=== PATIENT | female | born 1950 | race Caucasian/White ===

== ENCOUNTER 2021-07-09 16:58 | Inpatient (IN) | payer MEDICARE, MEDICAID ==
[~2021-07-09] VITALS: Ht 167.6 cm; Wt 89.4 kg
[~2021-07-09 16:58] MED LIST: ETOMIDATE 20 MG/10 ML ONE; MIDAZOLAM 1 MG/ML, 5ML ONE; PROPOFOL 10 MG/ML, 100ML IV ONE; VECURONIUM 10 MG ONE
[2021-07-09] MEDS: NOREPINEPHRINE 8 MG in SODIUM CHLORIDE 0.9% 242 ML IV PRN ×2 (17:13→20:38)
--- NOTE | 2021-07-09 17:21 | NUR ---
1706 ETOMIDATE THEN VECURONIUM ADMIN. SOFT RESTRAINTS PLACED 1709 7.5 TUBE 23 TEETH 1713 LEVO AND PROPOFOL INITIATED 1720 SET UP FOR CENTRAL LINE.
--- NOTE | 2021-07-09 17:25 | NUR ---
VENT SETTINGS RATE 24, TV 500, FIO2 100%, PEEP 10
[2021-07-09] MEDS ORDERED: VECURONIUM 10 MG IVPush ONE (17:30)
[2021-07-09] MEDS ORDERED: PLEASE ENTER HEIGHT AND WEIGHT MC SCH (17:30)
[2021-07-09] MEDS ORDERED: ETOMIDATE 40 MG/20 ML IVPush ONE (17:30)
[2021-07-09] MEDS ORDERED: PLEASE ENTER ALLERGIES MC SCH (17:30)
[2021-07-09] MEDS ORDERED: ACETAMINOPHEN 325 MG SUPP ONE (17:59)
[2021-07-09] MEDS ORDERED: ACETAMINOPHEN 650 MG SUPP ONE (17:59)
[2021-07-09 18:27] LABS: ALBUMIN 1.8 g/dL (3.4-5.0); ANION GAP 7 mmol/L (5-15); CALCIUM 8.2 mg/dL (8.5-10.1); CHLORIDE 110 mmol/L (98-107)
[2021-07-09] MEDS ORDERED: MIDAZOLAM 1 MG/ML, 5ML IVPush ONE (18:30)
[2021-07-09 18:31] LABS: CREATININE 0.94 mg/dL (0.55-1.02); MEAN CORPUSCULAR HEMOGLOBIN 29.6 pg (27.0-34.8); MEAN CORPUSCULAR HGB CONC 31.8 g/dL (32.4-35.8); MEAN PLATELET VOLUME 7.7 fL (7.4-10.4); PLATELET COUNT 176 x10^3/uL (130-400); RED BLOOD COUNT 5.65 x10^6/uL (3.82-5.3)
[2021-07-09 18:34] LABS: TROPONIN I 0.268 ng/mL (0.000-0.045)
--- NOTE | 2021-07-09 18:40 | NUR ---
Break RN: spoke with patient's who states patient started becoming edematous around Jun 23- and has doubled in size since then.
--- NOTE | 2021-07-09 18:44 | NUR ---
Break RN: patient moving frequently; admin meds per mar. BS 71. Initiated D10 infusion per hospitalist, Dr. Ralph at 50mL/hr with a goal of BS 160-180. Primary RN aware.
[2021-07-09] MEDS ORDERED: FENTANYL PF 100 MCG/2ML ONE (18:46)
--- NOTE | 2021-07-09 18:57 | NUR ---
physical assessment performed upon arrival. documented at later time.
[2021-07-09] MEDS ORDERED: FUROSEMIDE 100 MG/10 ML IV ONE (19:00)
[2021-07-09] MEDS ORDERED: ACETAMINOPHEN 650 MG SUPP PR ONE (19:00)
[2021-07-09] MEDS ORDERED: NOREPINEPHRINE 8 MG in SODIUM CHLORIDE 0.9% 242 ML IV PRN (19:00)
[2021-07-09] MEDS ORDERED: VANCOMYCIN PER PHARMACY MC PRN (19:00)
[2021-07-09] MEDS ORDERED: LABETALOL 5MG/ML, 20ML IVPush PRN (19:00)
[2021-07-09] MEDS ORDERED: ONDANSETRON 2MG/ML, 2ML IVPush PRN (19:00)
[2021-07-09] MEDS ORDERED: PHARMACY MAY ADJ FOR RENAL FX MC PRN (19:00)
[2021-07-09] MEDS ORDERED: SODIUM CHLORIDE FLUSH 10ML SYR IVF PRN (19:00)
[2021-07-09] MEDS ORDERED: BISACODYL 10 MG SUPP PR PRN (19:00)
[2021-07-09] MEDS ORDERED: ICN FENTANYL 4MCG/ML IV IVPush ONE (19:00)
--- NOTE | 2021-07-09 19:10 | NUR ---
[place] bag emptied with 2500 ml of urine
[2021-07-09] MEDS ORDERED: FUROSEMIDE 40 MG/4 ML ONE (19:15)
[2021-07-09 19:17] LABS: BAND#(MANUAL) 2.02 x10^3/uL; BANDS%(MANUAL) 17 % (0-7); LYMPH#(MANUAL) 0.83 x10^3/uL (1-3.4); LYMPHS% (MANUAL) 7 % (22-44); MONOS#(MANUAL) 0.71 x10^3/uL (0.3-2.7); MONOS% (MANUAL) 6 % (2-9); SEG#(MANUAL) 8.33 x10^3/uL (1.8-6.8); SEGS% (MANUAL) 70 % (42-75)
[2021-07-09 19:18] LABS: ANISOCYTOSIS 1+
[2021-07-09 19:19] LABS: <PLATELET ESTIMATE> ADEQUATE; <PLT MORPHOLOGY> NORMAL PLT MORPH
[2021-07-09] MEDS ORDERED: PIPERACILLIN/TAZO 4.5 GM in DEXTROSE 5% 50 ML IVPB SCH (19:30)
[2021-07-09] MEDS ORDERED: PHARMACY MAY ADJ FOR RENAL FX MC SCH (19:30)
[2021-07-09] MEDS: PIPERACILLIN/TAZO 4.5 GM in DEXTROSE 5% 100 ML IVPB SCH (19:33)
[2021-07-09] MEDS ORDERED: ALBUTEROL/IPRATROPIUM 2.5MG/0.5MG, 3 ML ONE (19:40)
--- NOTE | 2021-07-09 19:42 | NUR ---
ice packs placed in groin. md aware of temp post medications.
[2021-07-09] MEDS ORDERED: FUROSEMIDE 40 MG/4 ML IV ONE (20:00)
[2021-07-09] MEDS ORDERED: FENTANYL PF 100 MCG/2ML IVPush ONE (20:00)
[2021-07-09] MEDS ORDERED: DEXTROSE 10%, 250ML IV ONE (20:30)
[2021-07-09] MEDS ORDERED: PHARMACOKINETIC MONITORING MC PRN (20:30)
[2021-07-09] MEDS: VANCOMYCIN 1,900 MG in SODIUM CHLORIDE 0.9% 250 ML IV SCH (20:36)
[2021-07-09] MEDS: FAMOTIDINE 20 MG/2 ML IVPush SCH (20:42)
[2021-07-09] MEDS: ENOXAPARIN 40 MG/0.4 ML SQ SCH (20:42)
[2021-07-09 21:30] VITALS: BP 102/65
[2021-07-09] MEDS ORDERED: DEXTROSE 10%, 1,000ML IV SCH (23:00)
[2021-07-09] MEDS ORDERED: ALBUTEROL/IPRATROPIUM 2.5MG/0.5MG, 3 ML NPPB SCH (23:00)
[2021-07-09 23:39] LABS: MICROSCOPIC NOT IND
[2021-07-10] MEDS: NOREPINEPHRINE 32 MG in SODIUM CHLORIDE 0.9% 218 ML IV PRN ×3 (00:05→16:40)
[2021-07-10 00:26] LABS: TROPONIN I 0.267 ng/mL (0.000-0.045)
[2021-07-10] MEDS ORDERED: PHENYLEPHRINE 100 MG in SODIUM CHLORIDE 0.9% 240 ML IV PRN (00:30)
[2021-07-10] MEDS: ACETAMINOPHEN 500 MG TABLET NG PRN ×2 (00:50→09:42)
[2021-07-10] MEDS: PIPERACILLIN/TAZO 4.5 GM in DEXTROSE 5% 100 ML IVPB SCH ×4 (02:55→21:30)
[2021-07-10] MEDS: ALBUTEROL/IPRATROPIUM 2.5MG/0.5MG, 3 ML NPPB SCH ×4 (03:00→21:00)
[2021-07-10] MEDS: PROPOFOL 100 ML IV PRN ×3 (04:20→21:31)
[2021-07-10 04:50] LABS: MEAN CORPUSCULAR HEMOGLOBIN 29.6 pg (27.0-34.8); MEAN CORPUSCULAR HGB CONC 32.2 g/dL (32.4-35.8); MEAN PLATELET VOLUME 7.9 fL (7.4-10.4); PLATELET COUNT 194 x10^3/uL (130-400); RED BLOOD COUNT 5.77 x10^6/uL (3.82-5.3); RED CELL DISTRIBUTION WIDTH 18.5 % (9.6-15.2)
[2021-07-10 04:53] LABS: ALANINE AMINOTRANSFERASE 22 U/L (12-78); ALBUMIN 1.4 g/dL (3.4-5.0); ANION GAP 6 mmol/L (5-15); CALCIUM 7.5 mg/dL (8.5-10.1); CHLORIDE 108 mmol/L (98-107); CREATININE 1.43 mg/dL (0.55-1.02)
[2021-07-10 04:58] LABS: ALKALINE PHOSPHATASE 103 U/L (45-117); BILIRUBIN,TOTAL 0.8 mg/dL (0.2-1.0); TOTAL PROTEIN 4.9 g/dL (6.4-8.2)
[2021-07-10 05:53] LABS: BAND#(MANUAL) 4.05 x10^3/uL; BANDS%(MANUAL) 21 % (0-7); LYMPH#(MANUAL) 1.35 x10^3/uL (1-3.4); LYMPHS% (MANUAL) 7 % (22-44); MONOS#(MANUAL) 1.35 x10^3/uL (0.3-2.7); MONOS% (MANUAL) 7 % (2-9); SEG#(MANUAL) 12.55 x10^3/uL (1.8-6.8); SEGS% (MANUAL) 65 % (42-75)
[2021-07-10 05:54] LABS: <PLATELET ESTIMATE> ADEQUATE; <PLT MORPHOLOGY> NORMAL PLT MORPH; ANISOCYTOSIS 1+
[2021-07-10] MEDS: FAMOTIDINE 20 MG/2 ML IVPush SCH (08:17)
[2021-07-10] MEDS: POTASSIUM CHLORIDE 20 MEQ TAB.ER.PRT PO SCH ×2 (08:17→17:49)
[2021-07-10] MEDS ORDERED: MAGNESIUM SULFATE PMX 4GM/100M 100 ML IVPB ONE (09:00)
[2021-07-10] MEDS ORDERED: DEXTROSE 50%, 50ML SYRINGE IVPush PRN (09:00)
[2021-07-10] MEDS: FUROSEMIDE 100 MG in SODIUM CHLORIDE 0.9% 90 ML IV PRN ×2 (09:21→14:20)
[2021-07-10] MEDS ORDERED: FENTANYL PF 100 MCG/2ML ONE (11:03)
[2021-07-10] MEDS: FENTANYL PF 100 MCG/2ML IVPush PRN ×2 (11:05→20:13)
[2021-07-10] MEDS ORDERED: METHIMAZOLE 5 MG TAB ONE (13:27)
[2021-07-10] MEDS ORDERED: METOLAZONE 5 MG TABLET PO ONE (13:30)
[2021-07-10] MEDS: DEXTROSE 50%, 50ML SYRINGE IVPush PRN ×2 (13:38→17:49)
[2021-07-10] MEDS ORDERED: METOLAZONE 5 MG TABLET ONE (13:45)
[2021-07-10] MEDS: VANCOMYCIN 1,900 MG in SODIUM CHLORIDE 0.9% 250 ML IV SCH (14:59)
[2021-07-10] MEDS ORDERED: DEXTROSE 10%, 1,000ML IV ONE (19:37)
[2021-07-10] MEDS: VASOPRESSIN 20 UNIT in SODIUM CHLORIDE 0.9% 99 ML IV PRN (20:05)
[2021-07-10] MEDS: MILRINONE IV PRN (20:06)
[2021-07-10] MEDS: DEXTROSE 5% IV PRN (20:06)
[2021-07-10] MEDS: ENOXAPARIN 40 MG/0.4 ML SQ SCH (21:31)
[2021-07-11] MEDS: ALBUTEROL/IPRATROPIUM 2.5MG/0.5MG, 3 ML NPPB SCH ×4 (01:14→21:00)
[2021-07-11] MEDS: PIPERACILLIN/TAZO 4.5 GM in DEXTROSE 5% 100 ML IVPB SCH ×2 (01:49→08:23)
[2021-07-11] MEDS: VASOPRESSIN 20 UNIT in SODIUM CHLORIDE 0.9% 99 ML IV PRN ×3 (01:49→20:15)
[2021-07-11] MEDS: ACETAMINOPHEN 500 MG TABLET NG PRN ×2 (02:33→12:26)
[2021-07-11] MEDS: PROPOFOL 100 ML IV PRN ×2 (04:36→10:28)
[2021-07-11 05:13] LABS: MEAN CORPUSCULAR HEMOGLOBIN 29.3 pg (27.0-34.8); MEAN CORPUSCULAR HGB CONC 31.6 g/dL (32.4-35.8); MEAN PLATELET VOLUME 7.9 fL (7.4-10.4); PLATELET COUNT 145 x10^3/uL (130-400); RED BLOOD COUNT 5.77 x10^6/uL (3.82-5.3); RED CELL DISTRIBUTION WIDTH 19.1 % (9.6-15.2)
[2021-07-11 06:17] LABS: ANISOCYTOSIS 1+; BANDS%(MANUAL) 15 % (0-7); EOS#(MANUAL) 0.24 x10^3/uL (0.0-0.4); EOS% (MANUAL) 1 % (1-7); LYMPH#(MANUAL) 0.72 x10^3/uL (1-3.4); LYMPHS% (MANUAL) 3 % (22-44); MONOS% (MANUAL) 10 % (2-9); SEG#(MANUAL) 17.04 x10^3/uL (1.8-6.8); SEGS% (MANUAL) 71 % (42-75)
[2021-07-11 06:18] LABS: <PLATELET ESTIMATE> ADEQUATE; <PLT MORPHOLOGY> NORMAL PLT MORPH; PMNS WITH VACUOLES 1+
[2021-07-11 06:25] LABS: ALANINE AMINOTRANSFERASE 21 U/L (12-78); ALBUMIN 1.2 g/dL (3.4-5.0); ANION GAP 12 mmol/L (5-15); CALCIUM 7.3 mg/dL (8.5-10.1); CHLORIDE 107 mmol/L (98-107)
[2021-07-11 06:27] LABS: ALKALINE PHOSPHATASE 115 U/L (45-117); TOTAL PROTEIN 4.6 g/dL (6.4-8.2)
[2021-07-11] MEDS: NOREPINEPHRINE 32 MG in SODIUM CHLORIDE 0.9% 218 ML IV PRN ×4 (06:40→21:06)
[2021-07-11] MEDS: DEXTROSE 5% IV PRN ×3 (08:23→20:05)
[2021-07-11] MEDS: MILRINONE IV PRN ×3 (08:23→20:05)
[2021-07-11] MEDS: VANCOMYCIN 1,900 MG in SODIUM CHLORIDE 0.9% 250 ML IV SCH (08:57)
[2021-07-11] MEDS: FAMOTIDINE 20 MG/2 ML IVPush SCH (10:28)
[2021-07-11] MEDS ORDERED: ADENOSINE 6 MG/2 ML ONE (11:35)
[2021-07-11] MEDS ORDERED: ADENOSINE 6 MG/2 ML IVPush ONE (12:00)
[2021-07-11] MEDS: FENTANYL PF 100 MCG/2ML IVPush PRN (12:23)
[2021-07-11] MEDS: PIPERACILLIN/TAZO 2.25 GM in DEXTROSE 5% 50 ML IVPB SCH ×2 (13:36→20:33)
[2021-07-11] MEDS: ENOXAPARIN 30 MG/0.3 ML SQ SCH (20:00)
[2021-07-12] MEDS: PROPOFOL 100 ML IV PRN ×4 (00:12→20:39)
[2021-07-12] MEDS: DEXTROSE 5% IV PRN ×4 (00:51→22:25)
[2021-07-12] MEDS: MILRINONE IV PRN ×4 (00:51→22:25)
[2021-07-12] MEDS: PIPERACILLIN/TAZO 2.25 GM in DEXTROSE 5% 50 ML IVPB SCH ×4 (01:55→20:40)
[2021-07-12] MEDS: ACETAMINOPHEN 500 MG TABLET NG PRN (01:55)
[2021-07-12 02:41] LABS: MEAN CORPUSCULAR HEMOGLOBIN 28.9 pg (27.0-34.8); MEAN PLATELET VOLUME 7.8 fL (7.4-10.4); PLATELET COUNT 139 x10^3/uL (130-400); RED BLOOD COUNT 5.56 x10^6/uL (3.82-5.3); RED CELL DISTRIBUTION WIDTH 18.9 % (9.6-15.2)
[2021-07-12] MEDS: ALBUTEROL/IPRATROPIUM 2.5MG/0.5MG, 3 ML NPPB SCH ×4 (02:47→18:23)
[2021-07-12 03:50] LABS: BAND#(MANUAL) 4.09 x10^3/uL; BANDS%(MANUAL) 14 % (0-7); BASOS#(MANUAL) 0.29 x10^3/uL (0-0.1); BASOS% (MANUAL) 1 % (0-1); LYMPH#(MANUAL) 2.04 x10^3/uL (1-3.4); LYMPHS% (MANUAL) 7 % (22-44); MONOS#(MANUAL) 1.75 x10^3/uL (0.3-2.7); MONOS% (MANUAL) 6 % (2-9); SEG#(MANUAL) 21.02 x10^3/uL (1.8-6.8); SEGS% (MANUAL) 72 % (42-75)
[2021-07-12 03:51] LABS: ANISOCYTOSIS 1+; PMNS WITH VACUOLES 1+
[2021-07-12 03:52] LABS: <PLATELET ESTIMATE> ADEQUATE; <PLT MORPHOLOGY> NORMAL PLT MORPH
[2021-07-12] MEDS: VASOPRESSIN 20 UNIT in SODIUM CHLORIDE 0.9% 99 ML IV PRN ×4 (05:00→17:18)
[2021-07-12] MEDS: NOREPINEPHRINE 32 MG in SODIUM CHLORIDE 0.9% 218 ML IV PRN ×2 (05:01→17:18)
[2021-07-12] MEDS ORDERED: MAGNESIUM SULFATE PMX 2GM/50ML 50 ML IV ONE (07:00)
[2021-07-12 07:38] LABS: ALANINE AMINOTRANSFERASE 22 U/L (12-78); ANION GAP 10 mmol/L (5-15); CALCIUM 6.9 mg/dL (8.5-10.1); CHLORIDE 103 mmol/L (98-107); CREATININE 1.78 mg/dL (0.55-1.02)
[2021-07-12 07:40] LABS: ALKALINE PHOSPHATASE 155 U/L (45-117); BILIRUBIN,TOTAL 1.3 mg/dL (0.2-1.0); TOTAL PROTEIN 4.9 g/dL (6.4-8.2)
[2021-07-12] MEDS: FAMOTIDINE 20 MG/2 ML IVPush SCH (09:26)
[2021-07-12] MEDS: FENTANYL PF 100 MCG/2ML IVPush PRN ×2 (20:39→22:34)
[2021-07-12] MEDS: ENOXAPARIN 30 MG/0.3 ML SQ SCH (20:40)
[2021-07-13] MEDS: ALBUTEROL/IPRATROPIUM 2.5MG/0.5MG, 3 ML NPPB SCH ×4 (01:00→21:50)
[2021-07-13] MEDS ORDERED: VANCOMYCIN 1,500 MG in SODIUM CHLORIDE 0.9% 250 ML IV SCH (02:00)
[2021-07-13] MEDS: FENTANYL PF 100 MCG/2ML IVPush PRN ×3 (02:06→20:19)
[2021-07-13] MEDS: PIPERACILLIN/TAZO 2.25 GM in DEXTROSE 5% 50 ML IVPB SCH ×4 (02:06→20:48)
[2021-07-13] MEDS: PROPOFOL 100 ML IV PRN ×4 (02:07→22:36)
[2021-07-13] MEDS: MILRINONE IV PRN ×4 (03:05→18:24)
[2021-07-13] MEDS: DEXTROSE 5% IV PRN ×4 (03:05→18:24)
[2021-07-13 04:24] LABS: MEAN CORPUSCULAR HEMOGLOBIN 28.7 pg (27.0-34.8); MEAN CORPUSCULAR HGB CONC 32.5 g/dL (32.4-35.8); MEAN PLATELET VOLUME 8.1 fL (7.4-10.4); PLATELET COUNT 118 x10^3/uL (130-400); RED BLOOD COUNT 5.13 x10^6/uL (3.82-5.3); RED CELL DISTRIBUTION WIDTH 17.6 % (9.6-15.2)
[2021-07-13 05:03] LABS: ANISOCYTOSIS 1+; BAND#(MANUAL) 2.86 x10^3/uL; BANDS%(MANUAL) 11 % (0-7); LYMPH#(MANUAL) 2.08 x10^3/uL (1-3.4); LYMPHS% (MANUAL) 8 % (22-44); MONOS#(MANUAL) 1.82 x10^3/uL (0.3-2.7); MONOS% (MANUAL) 7 % (2-9); PMNS WITH VACUOLES 2+; SEG#(MANUAL) 19.24 x10^3/uL (1.8-6.8); SEGS% (MANUAL) 74 % (42-75); TARGET CELLS 1+
[2021-07-13 05:04] LABS: <PLATELET ESTIMATE> DECREASED; HYPOCHROMIA 1+
[2021-07-13 05:05] LABS: <PLT MORPHOLOGY> NORMAL PLT MORPH
[2021-07-13] MEDS ORDERED: MAGNESIUM SULFATE PMX 2GM/50ML 50 ML IV ONE (07:00)
[2021-07-13] MEDS: NOREPINEPHRINE 32 MG in SODIUM CHLORIDE 0.9% 218 ML IV PRN (07:32)
[2021-07-13 07:37] LABS: CALCIUM 7.3 mg/dL (8.5-10.1); CHLORIDE 99 mmol/L (98-107); CREATININE 1.25 mg/dL (0.55-1.02)
[2021-07-13] MEDS: FAMOTIDINE 20 MG/2 ML IVPush SCH (07:45)
[2021-07-13 07:52] LABS: ANION GAP 11 mmol/L (5-15)
[2021-07-13] MEDS ORDERED: TPN PER PHARMACY MC SCH (08:30)
[2021-07-13] MEDS: POTASSIUM CHLORIDE 20 MEQ PACKET PO SCH ×3 (08:50→20:19)
[2021-07-13] MEDS ORDERED: hydrALAzine 20 MG/ML, 1ML IV SCH (09:00)
[2021-07-13] MEDS ORDERED: FILTER, DISP 1.2 MICRON FOR TPN/PVN IV PRN (10:30)
[2021-07-13] MEDS: VASOPRESSIN 20 UNIT in SODIUM CHLORIDE 0.9% 99 ML IV PRN (13:17)
[2021-07-13 14:45] LABS: ANION GAP 6 mmol/L (5-15); CALCIUM 7.3 mg/dL (8.5-10.1); CHLORIDE 99 mmol/L (98-107); CREATININE 1.08 mg/dL (0.55-1.02)
[2021-07-13] MEDS ORDERED: POTASSIUM CHLORIDE 40 MEQ in SODIUM CHLORIDE 0.9% 100 ML IV ONE ×2 (15:30→21:00)
[2021-07-13] MEDS ORDERED: STERILE WATER IV SCH (17:00)
[2021-07-13] MEDS ORDERED: AMINO ACID 10% IV SCH (17:00)
[2021-07-13] MEDS ORDERED: DEXTROSE 70% IV SCH (17:00)
[2021-07-13] MEDS ORDERED: [UNRECOGNIZED DRUG - OTHER] IV SCH (17:00)
[2021-07-13] MEDS: KSCALE TO 4.5 IV SCH (20:00)
[2021-07-13] MEDS: ENOXAPARIN 40 MG/0.4 ML SQ SCH (20:19)
[2021-07-13] MEDS: INSULIN REGULAR LOW DOSE Q6H X 48HRS SQ-INSULIN SCH (20:20)
[2021-07-13] MEDS ORDERED: INSULIN REGULAR LOW DOSE QDAY SQ-INSULIN SCH (21:00)
[2021-07-14] MEDS: FENTANYL PF 100 MCG/2ML IVPush PRN ×3 (00:22→08:42)
[2021-07-14] MEDS: ALBUTEROL/IPRATROPIUM 2.5MG/0.5MG, 3 ML NPPB SCH ×4 (01:35→21:00)
[2021-07-14] MEDS: KSCALE TO 4.5 IV SCH (02:00)
[2021-07-14] MEDS: PIPERACILLIN/TAZO 2.25 GM in DEXTROSE 5% 50 ML IVPB SCH ×4 (02:00→20:36)
[2021-07-14] MEDS: INSULIN REGULAR LOW DOSE Q6H X 48HRS SQ-INSULIN SCH ×2 (02:01→08:53)
[2021-07-14] MEDS ORDERED: POTASSIUM CHLORIDE PMX 100 ML IV ONE (03:00)
[2021-07-14] MEDS: PROPOFOL 100 ML IV PRN ×4 (03:29→21:08)
[2021-07-14] MEDS: NOREPINEPHRINE 32 MG in SODIUM CHLORIDE 0.9% 218 ML IV PRN (04:47)
[2021-07-14 05:14] LABS: ALBUMIN 1.3 g/dL (3.4-5.0); ANION GAP 4 mmol/L (5-15); CALCIUM 7.6 mg/dL (8.5-10.1); CHLORIDE 106 mmol/L (98-107)
[2021-07-14 05:20] LABS: MEAN CORPUSCULAR HEMOGLOBIN 28.4 pg (27.0-34.8); MEAN CORPUSCULAR HGB CONC 32.1 g/dL (32.4-35.8); MEAN PLATELET VOLUME 8.2 fL (7.4-10.4); PLATELET COUNT 124 x10^3/uL (130-400); RED BLOOD COUNT 5.36 x10^6/uL (3.82-5.3); RED CELL DISTRIBUTION WIDTH 17.8 % (9.6-15.2)
[2021-07-14 05:21] LABS: ALANINE AMINOTRANSFERASE 26 U/L (12-78); ALKALINE PHOSPHATASE 267 U/L (45-117); BILIRUBIN,TOTAL 1.8 mg/dL (0.2-1.0); CREATININE 1.02 mg/dL (0.55-1.02); PREALBUMIN 4.2 mg/dL (20.0-40.0); TOTAL PROTEIN 5.1 g/dL (6.4-8.2); VANCOMYCIN,RANDOM 26.4 mcg/mL
[2021-07-14 06:09] LABS: ANISOCYTOSIS 1+; BAND#(MANUAL) 2.01 x10^3/uL; BANDS%(MANUAL) 10 % (0-7); EOS% (MANUAL) 1 % (1-7); HYPOCHROMIA 1+; LYMPH#(MANUAL) 2.21 x10^3/uL (1-3.4); LYMPHS% (MANUAL) 11 % (22-44); MONOS#(MANUAL) 1.21 x10^3/uL (0.3-2.7); MONOS% (MANUAL) 6 % (2-9); SEG#(MANUAL) 14.47 x10^3/uL (1.8-6.8); SEGS% (MANUAL) 72 % (42-75); TARGET CELLS 1+
[2021-07-14 06:10] LABS: <PLATELET ESTIMATE> DECREASED; <PLT MORPHOLOGY> NORMAL PLT MORPH
[2021-07-14] MEDS ORDERED: SODIUM PHOSPHATE 20 MMOL in SODIUM CHLORIDE 0.9% 500 ML IV ONE (06:30)
[2021-07-14] MEDS ORDERED: FUROSEMIDE 40 MG/4 ML ONE (10:01)
[2021-07-14] MEDS: FUROSEMIDE 20 MG/2 ML IV SCH ×2 (10:15→20:51)
[2021-07-14] MEDS: FENTANYL PF 1,000 MCG in SODIUM CHLORIDE 0.9% 80 ML IV PRN (10:16)
[2021-07-14] MEDS: INSULIN REGULAR, HUMAN 100 UNITS/ML, 3ML MEDIUM DOSE SS SQ-INSULIN SCH ×2 (11:00→16:53)
[2021-07-14] MEDS ORDERED: OMNIPAQUE 350 MG/ML, 150 ML BOTTLE ONE (14:07)
[2021-07-14] MEDS ORDERED: [UNRECOGNIZED DRUG - OTHER] IV SCH (17:00)
[2021-07-14] MEDS ORDERED: STERILE WATER IV SCH ×2 (17:00)
[2021-07-14] MEDS ORDERED: [UNRECOGNIZED DRUG - OTHER] IV SCH (17:00)
[2021-07-14] MEDS ORDERED: AMINO ACID 10% IV SCH ×2 (17:00)
[2021-07-14] MEDS ORDERED: DEXTROSE 70% IV SCH ×2 (17:00)
[2021-07-14] MEDS: INSULIN REGULAR 100 UNITS/ML, 3ML VIAL SQ-INSULIN SCH (20:51)
[2021-07-14] MEDS: ENOXAPARIN 40 MG/0.4 ML SQ SCH (20:51)
[2021-07-14] MEDS: VANCOMYCIN 1,300 MG in SODIUM CHLORIDE 0.9% 250 ML IV SCH (21:08)
[2021-07-15] MEDS: ALBUTEROL/IPRATROPIUM 2.5MG/0.5MG, 3 ML NPPB SCH ×4 (01:20→21:00)
[2021-07-15] MEDS: FENTANYL PF 1,000 MCG in SODIUM CHLORIDE 0.9% 80 ML IV PRN (03:00)
[2021-07-15] MEDS: INSULIN REGULAR 100 UNITS/ML, 3ML VIAL SQ-INSULIN SCH ×4 (03:00→20:58)
[2021-07-15] MEDS: PROPOFOL 100 ML IV PRN ×2 (03:01→09:04)
[2021-07-15] MEDS: PIPERACILLIN/TAZO 2.25 GM in DEXTROSE 5% 50 ML IVPB SCH ×4 (03:36→20:08)
[2021-07-15 03:55] LABS: MEAN CORPUSCULAR HEMOGLOBIN 29.1 pg (27.0-34.8); MEAN CORPUSCULAR HGB CONC 32.6 g/dL (32.4-35.8); MEAN PLATELET VOLUME 8.9 fL (7.4-10.4); PLATELET COUNT 126 x10^3/uL (130-400); RED BLOOD COUNT 5.28 x10^6/uL (3.82-5.3); RED CELL DISTRIBUTION WIDTH 18.2 % (9.6-15.2)
[2021-07-15 03:56] LABS: ALANINE AMINOTRANSFERASE 22 U/L (12-78); ALBUMIN 1.2 g/dL (3.4-5.0); ANION GAP 6 mmol/L (5-15); CALCIUM 7.6 mg/dL (8.5-10.1); CHLORIDE 106 mmol/L (98-107); CREATININE 0.83 mg/dL (0.55-1.02)
[2021-07-15 03:58] LABS: ALKALINE PHOSPHATASE 246 U/L (45-117); BILIRUBIN,TOTAL 1.9 mg/dL (0.2-1.0); TOTAL PROTEIN 4.9 g/dL (6.4-8.2); TRIGLYCERIDES 147 mg/dL (50-200)
[2021-07-15 04:12] LABS: ANISOCYTOSIS 1+; BAND#(MANUAL) 0.58 x10^3/uL; BANDS%(MANUAL) 4 % (0-7); BASOS#(MANUAL) 0.14 x10^3/uL (0-0.1); BASOS% (MANUAL) 1 % (0-1); EOS#(MANUAL) 0.14 x10^3/uL (0.0-0.4); EOS% (MANUAL) 1 % (1-7); LYMPH#(MANUAL) 2.59 x10^3/uL (1-3.4); LYMPHS% (MANUAL) 18 % (22-44); MONOS#(MANUAL) 0.43 x10^3/uL (0.3-2.7); MONOS% (MANUAL) 3 % (2-9); SEG#(MANUAL) 10.51 x10^3/uL (1.8-6.8); SEGS% (MANUAL) 73 % (42-75); TARGET CELLS 1+
[2021-07-15 04:13] LABS: <PLATELET ESTIMATE> DECREASED; <PLT MORPHOLOGY> NORMAL PLT MORPH; PMNS WITH VACUOLES 1+
[2021-07-15] MEDS ORDERED: BISACODYL 10 MG SUPP PR PRN (06:30)
[2021-07-15] MEDS ORDERED: LACTULOSE 20 GM/30 ML UDC PO PRN (06:30)
[2021-07-15] MEDS: DOCUSATE 100 MG CAPSULE PO SCH (08:05)
[2021-07-15] MEDS: POTASSIUM CHLORIDE 20 MEQ PACKET PO SCH ×3 (08:08→20:58)
[2021-07-15] MEDS: FUROSEMIDE 20 MG/2 ML IV SCH ×2 (08:08→09:00)
[2021-07-15] MEDS: DOCUSATE 50 MG/5 ML, 10ML UDC NG SCH (08:08)
[2021-07-15] MEDS ORDERED: MAGNESIUM SULFATE PMX 2GM/50ML 50 ML IV ONE (09:30)
[2021-07-15] MEDS: NOREPINEPHRINE 32 MG in SODIUM CHLORIDE 0.9% 218 ML IV PRN (15:25)
[2021-07-15] MEDS ORDERED: DEXTROSE 70% IV SCH (17:00)
[2021-07-15] MEDS ORDERED: [UNRECOGNIZED DRUG - OTHER] IV SCH (17:00)
[2021-07-15] MEDS ORDERED: AMINO ACID 10% IV SCH (17:00)
[2021-07-15] MEDS ORDERED: STERILE WATER IV SCH (17:00)
[2021-07-15] MEDS: ENOXAPARIN 40 MG/0.4 ML SQ SCH (20:07)
[2021-07-15] MEDS: SENNA 176 MG/5 ML ORAL SOL NG SCH (20:58)
[2021-07-15] MEDS: VANCOMYCIN 1,300 MG in SODIUM CHLORIDE 0.9% 250 ML IV SCH (20:58)
[2021-07-15] MEDS ORDERED: SENNA/DOCUSATE TABLET PO SCH (21:00)
[2021-07-16] MEDS: PROPOFOL 100 ML IV PRN ×3 (00:43→18:25)
[2021-07-16] MEDS: FENTANYL PF 1,000 MCG in SODIUM CHLORIDE 0.9% 80 ML IV PRN (01:56)
[2021-07-16] MEDS: PIPERACILLIN/TAZO 2.25 GM in DEXTROSE 5% 50 ML IVPB SCH ×2 (02:08→07:45)
[2021-07-16] MEDS: ALBUTEROL/IPRATROPIUM 2.5MG/0.5MG, 3 ML NPPB SCH ×4 (03:50→21:00)
[2021-07-16] MEDS: INSULIN REGULAR 100 UNITS/ML, 3ML VIAL SQ-INSULIN SCH ×4 (04:00→21:21)
[2021-07-16 05:02] LABS: BASOPHILS % (AUTO) 0 % (0-1); EOSINOPHILS % (AUTO) 4 % (1-7); LYMPHOCYTES % (AUTO) 13 % (22-44); MEAN CORPUSCULAR HEMOGLOBIN 28.9 pg (27.0-34.8); MEAN CORPUSCULAR HGB CONC 31.2 g/dL (32.4-35.8); MEAN PLATELET VOLUME 9.5 fL (7.4-10.4); MONOCYTES % (AUTO) 6 % (2-9); NEUTROPHILS % (AUTO) 77 % (42-75); PLATELET COUNT 212 x10^3/uL (130-400); RED BLOOD COUNT 5.24 x10^6/uL (3.82-5.3); RED CELL DISTRIBUTION WIDTH 18.9 % (9.6-15.2)
[2021-07-16 05:07] LABS: CHLORIDE 110 mmol/L (98-107)
[2021-07-16 05:17] LABS: ANION GAP 4 mmol/L (5-15)
[2021-07-16] MEDS: DOCUSATE 100 MG CAPSULE PO SCH (07:46)
[2021-07-16] MEDS: DOCUSATE 50 MG/5 ML, 10ML UDC NG SCH (09:56)
[2021-07-16] MEDS: NOREPINEPHRINE 32 MG in SODIUM CHLORIDE 0.9% 218 ML IV PRN (12:12)
[2021-07-16] MEDS: ACETAMINOPHEN 500 MG TABLET NG PRN (12:50)
[2021-07-16] MEDS ORDERED: AMINO ACID 10% IV SCH ×2 (17:00)
[2021-07-16] MEDS ORDERED: [UNRECOGNIZED DRUG - OTHER] IV SCH (17:00)
[2021-07-16] MEDS ORDERED: DEXTROSE 70% IV SCH ×2 (17:00)
[2021-07-16] MEDS ORDERED: STERILE WATER IV SCH ×2 (17:00)
[2021-07-16] MEDS ORDERED: [UNRECOGNIZED DRUG - OTHER] IV SCH (17:00)
[2021-07-16] MEDS: PIPERACILLIN/TAZO 3.375 GM in DEXTROSE 5% 50 ML IVPB SCH ×2 (17:37→21:14)
[2021-07-16] MEDS: ENOXAPARIN 40 MG/0.4 ML SQ SCH (20:00)
[2021-07-16] MEDS: VANCOMYCIN 1,300 MG in SODIUM CHLORIDE 0.9% 250 ML IV SCH (21:11)
[2021-07-16] MEDS: SENNA 176 MG/5 ML ORAL SOL NG SCH (21:35)
[2021-07-17] MEDS: FENTANYL PF 1,000 MCG in SODIUM CHLORIDE 0.9% 80 ML IV PRN (00:16)
[2021-07-17] MEDS: PROPOFOL 100 ML IV PRN ×2 (02:16→09:20)
[2021-07-17] MEDS: INSULIN REGULAR 100 UNITS/ML, 3ML VIAL SQ-INSULIN SCH (04:00)
[2021-07-17] MEDS: ALBUTEROL/IPRATROPIUM 2.5MG/0.5MG, 3 ML NPPB SCH ×2 (04:00→07:11)
[2021-07-17 04:34] LABS: MEAN CORPUSCULAR HEMOGLOBIN 29.5 pg (27.0-34.8); MEAN CORPUSCULAR HGB CONC 31.8 g/dL (32.4-35.8); MEAN PLATELET VOLUME 8.8 fL (7.4-10.4); PLATELET COUNT 286 x10^3/uL (130-400); RED BLOOD COUNT 4.97 x10^6/uL (3.82-5.3); RED CELL DISTRIBUTION WIDTH 18.2 % (9.6-15.2)
[2021-07-17] MEDS: PIPERACILLIN/TAZO 3.375 GM in DEXTROSE 5% 50 ML IVPB SCH ×2 (04:41→09:14)
[2021-07-17 05:32] LABS: ANISOCYTOSIS 1+; EOS#(MANUAL) 0.37 x10^3/uL (0.0-0.4); EOS% (MANUAL) 2 % (1-7); HYPOCHROMIA 1+; LYMPH#(MANUAL) 2.21 x10^3/uL (1-3.4); LYMPHS% (MANUAL) 12 % (22-44); MONOS#(MANUAL) 0.18 x10^3/uL (0.3-2.7); MONOS% (MANUAL) 1 % (2-9); POLYCHROMASIA 1+; REACTIVE LYMPHS # (MANUAL) 0.37 x10^3/uL (0-0); REACTIVE LYMPHS % (MANUAL) 2 % (0-0); SEG#(MANUAL) 15.27 x10^3/uL (1.8-6.8); SEGS% (MANUAL) 83 % (42-75)
[2021-07-17 05:33] LABS: TARGET CELLS 1+
[2021-07-17 05:34] LABS: <PLATELET ESTIMATE> ADEQUATE; LARGE PLATELETS 1+; PMNS WITH VACUOLES 1+
[2021-07-17] MEDS: DOCUSATE 50 MG/5 ML, 10ML UDC NG SCH (09:00)
[2021-07-17] MEDS: DOCUSATE 100 MG CAPSULE PO SCH (09:00)
[2021-07-17] MEDS ORDERED: LORazepam 2 MG/ML, 1ML IVPush PRN (10:00)
[2021-07-17] MEDS ORDERED: ONDANSETRON 2MG/ML, 2ML IVPush PRN (10:00)
[2021-07-17] MEDS ORDERED: MORPHINE SULFATE 4 MG/ML, 1ML IVPush PRN (10:00)
[2021-07-17] MEDS ORDERED: MORPHINE SULFATE 4 MG/ML, 1ML IV ONE (10:00)
[2021-07-17] MEDS ORDERED: ATROPINE OPHTH SOLN 1%, 5ML PO PRN (10:00)
[2021-07-17] MEDS ORDERED: LORazepam 2 MG/ML, 1ML IV ONE (10:00)
== END 2021-07-17 12:45 | DRG 870 ==
LOC: ED 17:28 → EDIP 18:37 → CCU 20:11 → CSU 07-16 15:12
PROVIDERS: ADMIT Internal Medicine; ATTEND Internal Medicine
PROC: 02HV33Z Insertion of Infusion Device into Superior Vena Cava, Percutaneous Approach (ICD-10-PCS; principal; 2021-07-09)
PROC: 5A1955Z Respiratory Ventilation, Greater than 96 Consecutive Hours (ICD-10-PCS; 2021-07-09)
PROC: B548ZZA Ultrasonography of Superior Vena Cava, Guidance (ICD-10-PCS; 2021-07-09)
PROC: 0BH17EZ Insertion of Endotracheal Airway into Trachea, Via Natural or Artificial Opening (ICD-10-PCS; 2021-07-09)
PROC: 0T9B30Z Drainage of Bladder with Drainage Device, Percutaneous Approach (ICD-10-PCS; 2021-07-09)
DX: A41.9 Sepsis, unspecified organism (principal); G93.41 Metabolic encephalopathy; I21.A1 Myocardial infarction type 2; J15.4 Pneumonia due to other streptococci; J96.01 Acute respiratory failure with hypoxia; J96.02 Acute respiratory failure with hypercapnia; N17.0 Acute kidney failure with tubular necrosis; R65.21 Severe sepsis with septic shock; I47.2 Ventricular tachycardia; I50.42 Chronic combined systolic (congestive) and diastolic (congestive) heart failure; J44.0 Chronic obstructive pulmonary disease with (acute) lower respiratory infection; L03.115 Cellulitis of right lower limb; Z68.41 Body mass index [BMI] 40.0-44.9, adult; Z99.11 Dependence on respirator [ventilator] status; D69.6 Thrombocytopenia, unspecified; E11.9 Type 2 diabetes mellitus without complications; E66.01 Morbid (severe) obesity due to excess calories; E88.09 Other disorders of plasma-protein metabolism, not elsewhere classified; E87.6 Hypokalemia; F15.10 Other stimulant abuse, uncomplicated; I11.0 Hypertensive heart disease with heart failure; I27.20 Pulmonary hypertension, unspecified; K80.20 Calculus of gallbladder without cholecystitis without obstruction; L30.4 Erythema intertrigo; Z51.5 Encounter for palliative care; Z66 Do not resuscitate; Z91.19 Patient's noncompliance with other medical treatment and regimen; Z79.899 Other long term (current) drug therapy
CPT/HCPCS: 31500; 36415; 36556; 36600; 84145; 87806; 96374; 96375; 99291; J1955; J3475; 70450; 71045; 76700; 80048; 80053; 80074; 80202; 81003; 82040; 82803; 82962; 83605; 83735; 83880; 84100; 84132; 84134; 84443; 84478; 84484; 85025; 87040; 87070; 87081; 87184; 87186; 87205; 93005; 93306; 94002; 94003; 94640; G0378; J0153; J0610; J1650; J1815; J1940; J2250; J2260; J2543; J2704; J3010; J3370; J3480; Q9967; G0475; J2060; J2270; J2370; J3420; J7040; J7050